=== PATIENT | female | born 1985 | race Caucasian/White ===

== ENCOUNTER 2017-06-27 14:59 | Emergency (ER) | payer OTHER ==
[~2017-06-27] VITALS: Ht 167.6 cm; Wt 79.5 kg
[2017-06-27 15:04] VITALS: BP 124/83
[2017-06-27] MEDS ORDERED: KETOROLAC 30 MG/1 ML ONE (15:30)
[2017-06-27] MEDS ORDERED: KETOROLAC 30 MG/1 ML IM ONE (15:30)
[2017-06-27] MEDS ORDERED: ACETAMINOPHEN 325 MG TABLET PO ONE (15:30)
== END 2017-06-27 16:41 | disposition home or self-care (01) ==
LOC: ED 16:25
DX: S13.4XXA Sprain of ligaments of cervical spine, initial encounter (principal); V49.9XXA Car occupant (driver) (passenger) injured in unspecified traffic accident, initial encounter; Y93.89 Activity, other specified; Y99.8 Other external cause status; Y92.488 Other paved roadways as the place of occurrence of the external cause
CPT/HCPCS: 72020; 72050; 72110; 73590; 73610; 96372; 99284; J1885